=== PATIENT | female | born 1980 | race Caucasian/White ===

== ENCOUNTER 2018-09-07 11:33 | Emergency (ER) | payer OTHER ==
[~2018-09-07] VITALS: Ht 167.6 cm; Wt 77.1 kg
[2018-09-07] MEDS ORDERED: SYNTHROID50 MCG (11:45)
[2018-09-07] MEDS ORDERED: MILLIPRED5 MG (11:46)
[2018-09-07] MEDS ORDERED: CELLCEPT500 MG (11:46)
[2018-09-07] MEDS ORDERED: COZAAR50 MG (11:46)
== END 2018-09-07 15:50 | disposition home or self-care (01) ==
LOC: ER 11:33
DX: K29.70 Gastritis, unspecified, without bleeding (principal)